=== PATIENT | female | born 1985 | race African-American/Black ===

== ENCOUNTER 2017-05-10 06:42 | Outpatient (CLI) | payer SELFPAY ==
[2017-05-10 07:04] VITALS: BP 114/70
[2017-05-10] MEDS ORDERED: VISTARIL PO NR (09:00)
== END 2017-05-10 08:40 | disposition home or self-care (01) ==
LOC: TRG 06:42
PROVIDERS: ATTEND Obstetrics & Gynecology
DX: O47.1 False labor at or after 37 completed weeks of gestation (principal); Z3A.39 39 weeks gestation of pregnancy
CPT/HCPCS: 59025; Q0177

== ENCOUNTER 2017-05-10 13:31 | Inpatient (IN) | payer OTHER ==
[2017-05-10] MEDS ORDERED: LACTATED RINGERS 1,000 ML ONE ×2 (15:23→16:52)
[2017-05-10] MEDS ORDERED: NARCAN 2 MG/2 ML IV PRN (16:09)
[2017-05-10] MEDS ORDERED: ePHEDrine SULFATE IV PRN ×2 (16:09→16:55)
--- NOTE | 2017-05-10 16:09 | Anesthesia Consultation ---
Anesthesia Consult and Med Hx Date of service: 05/10/17 - Airway Anesthetic Teeth Evaluation: Good ROM Head & Neck: Adequate Mental/Hyoid Distance: Adequate Mallampati Class: Class II Intubation Access Assessment: Probably Good - Pre-Operative Health Status Proposed Anesthetic Plan: Epidural, Spinal - Pulmonary Hx Asthma: No - Cardiovascular System Hx Hypertension: No - Central Nervous System Hx Seizures: No Hx Psychiatric Problems: No - Endocrine Hx Renal Disease: No Hx Hypothyroidism: No Hx Hyperthyroidism: No - Hematic Hx Anemia: No Hx Sickle Cell Disease: No - Other Systems Hx Alcohol Use: No
[2017-05-10] MEDS ORDERED: BRETHINE IVP PRN (16:55)
[2017-05-10] MEDS ORDERED: MINERAL OIL PO PRN (16:55)
[2017-05-10] MEDS ORDERED: BRETHINE SUB-Q PRN (16:55)
[2017-05-10] MEDS: LACTATED RINGERS 1,000 ML IV SCH ×2 (17:00→18:35)
[2017-05-10] MEDS ORDERED: PITOCin/NS 30 UNIT/500ML 30 UNITS/500 ML BAG IV SCH ×2 (17:00→18:00)
[2017-05-10] MEDS ORDERED: PITOCin/NS 20 UNIT/1000ML DRIP 20 UNITS/1,000 ML BAG IV SCH (17:00)
[2017-05-10] MEDS ORDERED: fentaNYL-BUPIV 2 MCG/ML-0.125% 200 MCG/100 ML BAG EPIDURAL SCH (17:00)
[2017-05-10] MEDS ORDERED: ZOFRAN IV PRN (17:01)
[2017-05-10] MEDS ORDERED: POLYCILLIN/NS 2 GM/100 ML 2 GM/100 ML BAG IV ONE (18:00)
--- NOTE | 2017-05-10 18:03 | History and Physical Report ---
History of Present Illness Date of examination: 05/10/17 Date of admission: 05/10/17 15:52 Chief complaint: Intense Labor Pains History of present illness: States she got care at [facility], states she had 3 visits. Clinic did not fax records. States her course was complicated by a UTI and Anemia. Past History Past Medical History: no pertinent history Past Surgical History: no surgical history Family/Genetic History: diabetes (mother), cancer (Lung CA: sister) Social history: - Obstetrical History Expected Date of Delivery: 05/13/17 Actual Gestation: 39 Week(s) 4 Day(s) : 1 Medications and Allergies Allergies Allergy/AdvReac Type Severity Reaction Status Date / Time No Known Allergies Allergy Verified 05/10/17 07:14 Active Meds: Active Medications Ephedrine Sulfate (Ephedrine Sulfate) 10 mg IV Q2M PRN PRN Reason: Hypotension Fentanyl/Bupivacaine/Sodium Chlor (Fentanyl-Bupiv 2 Mcg/Ml-0.125%) 200 mcg in 100 mls @ 12 mls/hr EPIDURAL TITR EMILY PRN Reason: Protocol Last Admin: 05/10/17 17:26 Dose: 12 mls/hr Lactated Ringer's (Lactated Ringers) 1,000 mls @ 125 mls/hr IV DIRECT EMILY Last Admin: 05/10/17 17:00 Dose: 125 mls/hr Oxytocin/Sodium Chloride (Pitocin/Ns 20 Unit/1000ml Drip) 20 units in 1,000 mls @ 125 mls/hr IV DIRECT EMILY Oxytocin/Sodium Chloride (Pitocin/Ns 30 Unit/500ml) 30 units in 500 mls @ 1 mls /hr IV TITR EMILY; 1 MILLIUNITS/MIN PRN Reason: Protocol Last Admin: 05/10/17 17:30 Dose: 1 milliunits/min, 1 mls/hr Oxytocin/Sodium Chloride (Pitocin/Ns 30 Unit/500ml) 30 units in 500 mls @ 4 mls /hr IV TITR EMILY PRN Reason: Protocol Ampicillin Sodium (Polycillin/Ns 2 Gm/100 Ml) 2 gm in 100 mls @ 100 mls/hr IV ONCE ONE Stop: 05/10/17 18:59 Last Admin: 05/10/17 17:10 Dose: 100 mls/hr Ampicillin Sodium (Polycillin/Ns 1 Gm/50 Ml) 1 gm in 50 mls @ 100 mls/hr IV Q4H MEILY PRN Reason: Protocol Mineral Oil (Mineral Oil) 30 ml PO QHS PRN PRN Reason: Constipation Naloxone HCl (Narcan 2 Mg/2 Ml) 0.2 mg IV Q5M PRN PRN Reason: Respiratory sedation Ondansetron HCl (Zofran) 4 mg IV Q8H PRN PRN Reason: Nausea And Vomiting Terbutaline Sulfate (Brethine) 0.25 mg SUB-Q ONCE PRN PRN Reason: Hyperstimulation/Hypertonicity Terbutaline Sulfate (Brethine) 0.25 mg IVP ONCE PRN PRN Reason: Hyperstimulation/Hypertonicity Review of Systems All systems: negative - Vital Signs Vital signs: Vital Signs Temp Pulse Resp BP Pulse Ox 98.4 F 72 20 113/72 100 05/10/17 14:04 05/10/17 14:04 05/10/17 14:04 05/10/17 14:04 05/10/17 14:04 Temp Pulse Resp BP Pulse Ox 98.4 F 83 20 106/63 100 05/10/17 14:04 05/10/17 18:00 05/10/17 14:04 05/10/17 17:57 05/10/17 18:00 - Physical Exam Breasts: Positive: normal Cardiovascular: Regular rate Lungs: Positive: Clear to auscultation, Normal air movement Abdomen: Positive: normal appearance, soft, normal bowel sounds Genitourinary (Female): Positive: normal external genitalia, normal perenium Vagina: Positive: normal moisture Anus/Rectum: Positive: normal perianal skin, heme negative - Obstetrical Cervical Dilatation: 6.5 (membranes were ruptured upon exam; no fluid observed; states her water broke around 7AM) Cervical Effacement Percentage: 90 station: -1 Uterine Contraction Frequency (min): 1-3 Uterine Contraction Pattern: Regular Uterine Contraction Intensity: Moderate Results All other labs normal. Assessment and Plan A: IUP @ 39 4/7 Weeks Category I Tracing SROM GBS Unknown Limited Care P: Admit to L&D per routine orders Epidural Anesthesia GBS Prophylaxis Pitocin Augmentation
[2017-05-10 18:34] LABS: Hematocrit 35.7 % (30.3-42.9); Hemoglobin 11.5 gm/dl (10.1-14.3); Mean Corpuscular HGB Conc 32 % (30-34); Mean Corpuscular Hemoglobin 26 pg (28-32); Mean Corpuscular Volume 81 fl (79-97); Platelet Count 304 K/mm3 (140-440); Red Blood Count 4.38 M/mm3 (3.65-5.03); Red Cell Distribution Width 13.7 % (13.2-15.2)
[2017-05-10] MEDS ORDERED: NACL 0.9% 1000 ML 1,000 ML ONE (21:23)
[2017-05-10] MEDS ORDERED: POLYCILLIN/NS 1 GM/50 ML 1 GM/50 ML BAG IV SCH (22:00)
[2017-05-10] MEDS ORDERED: DULCOLAX PR PRN (22:17)
[2017-05-10] MEDS ORDERED: NORCO 5/325 PO PRN (22:17)
[2017-05-10] MEDS ORDERED: TUCKS PAD TP PRN (22:17)
--- NOTE | 2017-05-10 22:26 | Procedure Note ---
OB Delivery Note - Delivery Date of Delivery: 05/10/17 (2150) Surgeon: DENISSE BENSON Estimated blood loss: 300cc - Vaginal Delivery presentation: vertex Delivery position: OA Intrapartum events: extend. tachycardia, mult.variable deceleratio Delivery induction: none Delivery augmentation: pitocin Delivery monitor: internal FHT, internal uterine Route of delivery: Delivery placenta: spontaneous Delivery cord: 3 umbilical vessels Delivery laceration: 2nd degree Delivery repair: vicryl Anesthesia: epidural Delivery comments: of a live 6'10 female over a second degree perineal laceration under epidural with Apgars of 8 and 9 at 2150 on 05/10/2017. Infant directly to maternal abd/chest, skin to skin contact. Spontaneous delivery of placenta complete and intact with Coe side presenting at 2154. Fundus is firm and midline located 4 below the U. Lochia is scant. Delayed cord clamping and cutting. Cord cut by the Father of the Baby. Perineal laceration repaired with 2-[address]-1. Cord blood collected. - Infant A at 1 minute: 8 at 5 minutes: 9 Gender: Female (6'10)
[2017-05-10] MEDS ORDERED: SODIUM CHLORIDE FLUSH SYRINGE 10 ML IV NR (23:00)
[2017-05-11] MEDS ORDERED: PITOCin/NS 20 UNIT/1000ML DRIP 20,000 MILLIUNITS/1,000 ML BAG IV ONE (00:21)
[2017-05-11] MEDS ORDERED: NACL 0.9% 1000 ML 1,000 ML VG SCH (04:00)
[2017-05-11] MEDS ORDERED: DERMOPLAST TP PRN (09:00)
--- NOTE | 2017-05-11 09:17 | Progress Note ---
Assessment and Plan - Patient Problems (1) (normal spontaneous vaginal delivery) Current Visit: Yes Status: Acute Plan to address problem: PPD 1 - stable Continue routine PP orders (2) Perineal discomfort in female Current Visit: Yes Status: Acute Plan to address problem: s/p 2nd degree perineal laceration repair Encourage ice packs x24 hrs, ambulation as tolerated Continue tucks prn Dermoplast ordered Subjective - Subjective Date of service: 05/11/17 Principal diagnosis: Normal Spontaneous Vaginal Delivery Patient reports: appetite normal, voiding normally, pain poorly controlled ( perineal pain), ambulating normally [place]: doing well, nursing well Objective - Vital Signs Latest vital signs: Vital Signs Temp Pulse Resp BP BP Pulse Ox 05/11/17 04:00 98.6 F 71 16 101/71 05/11/17 00:20 98.6 F 90 16 97/63 05/10/17 23:55 90 101/60 05/10/17 23:45 93 H 105/63 05/10/17 23:35 88 101/58 05/10/17 23:15 82/53 05/10/17 23:05 93 H 95/54 05/10/17 22:55 91 H 102/56 05/10/17 22:45 99 H 113/58 05/10/17 22:35 106 H 124/65 05/10/17 22:25 94 H 136/65 05/10/17 21:16 85 78 L 05/10/17 21:14 92 H 100 05/10/17 21:12 103 H 116/67 05/10/17 21:09 85 100 05/10/17 21:07 71 83 L 05/10/17 21:04 81 100 05/10/17 20:57 81 114/65 05/10/17 20:50 62 84 05/10/17 20:48 86 81 L 05/10/17 20:45 70 100 05/10/17 20:42 71 97/54 05/10/17 20:28 75 109/53 05/10/17 20:13 77 108/53 05/10/17 19:58 75 101/60 05/10/17 19:42 97 H 107/69 05/10/17 19:27 89 106/68 05/10/17 19:12 87 106/66 05/10/17 18:57 90 107/65 0218 18:50 90 100 0218 18:45 85 100 0218 18:42 85 107/63 0218 18:40 79 100 0218 18:35 81 100 0218 18:30 82 100 18 18:27 71 105/56 0218 18:25 75 100 18 18:20 70 100 0218 18:15 70 100 18 18:13 67 99/55 0218 18:10 90 100 18 18:05 86 100 18 18:00 97.2 F L 83 18 100 18 17:57 87 106/63 18 17:55 86 100 18 17:50 91 H 100 18 17:45 87 100 18 17:40 81 100 18 17:37 82 103/67 18 17:35 79 100 18 17:33 88 100/67 18 17:30 84 100 18 17:27 90 102/65 18 17:25 78 100 18 17:22 77 96/59 18 17:20 79 100 18 17:17 78 98/59 18 17:15 75 100 18 17:12 73 97/56 18 17:10 76 100 18 17:08 76 100/55 18 17:05 86 100 0218 17:03 80 93/50 0218 17:00 83 100 18 16:58 83 92/54 0218 16:55 85 100 0218 16:53 86 91/53 18 16:50 86 100 0218 16:48 86 94/51 02/18 16:45 88 100 18 16:42 87 94/57 0218 16:40 90 100 0218 16:37 86 103/64 0218 16:35 89 100 0218 16:30 98 H 100 02/26/18 16:25 102 H 100 05/10/17 16:20 92 H 100 05/10/17 16:00 97.0 F L 22 05/10/17 15:00 82 97 05/10/17 14:54 94 H 96 05/10/17 14:49 76 96 05/10/17 14:47 94 H 91 05/10/17 14:44 88 98 05/10/17 14:41 95 H 94 05/10/17 14:39 83 97 05/10/17 14:35 94 H 91 05/10/17 14:34 97 H 92 05/10/17 14:29 93 H 91 05/10/17 14:24 85 93 05/10/17 14:19 84 93 05/10/17 14:14 70 100 05/10/17 14:09 91 H 92 05/10/17 14:08 81 94 05/10/17 14:07 68 113/72 05/10/17 14:04 98.4 F 74 20 113/72 96 Intake and Output 05/10/17 05/11/17 05/11/17 23:59 07:59 15:59 Intake Total 209.984 550 Output Total 1400 Balance 209.984 -850 Intake: IV 209.984 250 Lactated Ringers 1,000 ml 197.917 @ 125 mls/hr IV DIRECT EMILY Rx#:[id number] Left Forearm 250 PITOCin/NS 30 UNIT/500ML 12.067 30 units In 500 ml @ 1 MILLIUNITS/MIN 1 mls/hr IV TITR EMILY Rx#:[id number] Intake, Free Water 300 Output: Urine 1400 Void 1400 Other: Total, Output Amount 600 # Voids Void 1 Weight 63.503 kg Estimated Blood Loss 300 - Exam Cardiovascular: Present: Regular rate, Normal S1, Normal S2, No murmurs Lungs: Present: Clear to auscultation, Normal air movement Abdomen: Present: normal appearance, soft Vulva: both: laceration/episiotomy Uterus: Present: normal, firm, fundal height below umbilicus Extremities: Present: normal Deep Tendon Reflex Grade: Normal +2 - Labs Labs: Abnormal lab results 05/10/17 Range/Units 16:59 WBC 15.1 H (4.5-11.0) K/mm3 MCH 26 L (28-32) pg
[2017-05-11 10:39] LABS: Hematocrit 22.3 % (30.3-42.9); Hemoglobin 7.5 gm/dl (10.1-14.3)
[2017-05-11] MEDS: MOTRIN PO SCH ×2 (12:53→23:40)
[2017-05-11] MEDS: LANSINOH TP PRN (12:54)
[2017-05-11] MEDS: FEOSOL PO SCH ×2 (14:15→23:40)
[2017-05-12] MEDS: MOTRIN PO SCH (07:57)
[2017-05-12] MEDS: FEOSOL PO SCH ×3 (08:56→20:19)
--- NOTE | 2017-05-12 10:06 | Progress Note ---
Assessment and Plan - Patient Problems (1) (normal spontaneous vaginal delivery) Current Visit: Yes Status: Acute Plan to address problem: PPD 2 - stable Continue routine PP orders Discharge to home later tonight, as requested Call [employer] to schedule follow-up and Meena Bassett to schedule 6-wks PP exam (2) Anemia in puerperium, baby delivered during current episode of care Current Visit: Yes Status: Acute Plan to address problem: Asymptomatic anemia Continue ferrous sulfate therapy Subjective - Subjective Date of service: 05/12/17 Principal diagnosis: Normal Spontaneous Vaginal Delivery Patient reports: appetite normal, voiding normally, pain well controlled, ambulating normally [place]: doing well, nursing well Objective - Vital Signs Latest vital signs: Vital Signs Temp Pulse Resp BP Pulse Ox 05/12/17 00:00 98.6 F 77 18 114/68 05/11/17 17:14 97.7 F 93 H 18 108/63 98 05/11/17 13:27 97.7 F 68 18 96/60 96 - Exam Cardiovascular: Present: Regular rate, Normal S1, Normal S2, No murmurs Lungs: Present: Clear to auscultation, Normal air movement Abdomen: Present: normal appearance, soft Vulva: both: laceration/episiotomy (well approximated and healing well) Uterus: Present: normal, firm, fundal height below umbilicus Extremities: Present: normal Deep Tendon Reflex Grade: Normal +2 - Labs Labs: Abnormal lab results 05/11/17 Range/Units 10:04 Hgb 7.5 L D (10.1-14.3) gm/dl Hct 22.3 L D (30.3-42.9) %
--- NOTE | 2017-05-12 10:11 | Discharge Summary ---
Providers - Providers Date of Admission: 05/10/17 15:52 Date of discharge: 05/12/17 Attending physician: FLORIDALMA HAAS MD Primary care physician: FLORIDALMA HAAS MD Hospitalization Reason for admission: active labor, IUP at term Delivery: Episiotomy: none Laceration: 2nd degree (perineal) Other procedures: none complications: none Discharge diagnosis: IUP at term delivered baby: female Hospital course: Uncomplicated Condition at discharge: Stable Disposition: DC-01 TO HOME OR SELFCARE - Discharge Diagnoses (1) (normal spontaneous vaginal delivery) Status: Acute (2) Anemia in puerperium, baby delivered during current episode of care Status: Acute Comment: Continue ferrous sulfate therapy at home Plan - Provider Discharge Summary Activity: routine, no sex for 6 weeks, no heavy lifting 4 weeks, no strenuous exercise Diet: routine Instructions: routine Additional instructions: [] Smoking cessation referral if applicable(refer to patient education folder for contact #) [] Refer to [facility] Booklet Call your doctor immediately for: * Fever > 100.5 * Heavy vaginal bleeding ( >1 pad per hour) * Severe persistent headache * Shortness of breath * Reddened, hot, painful area to leg or breast * Drainage or odor from incision. * Keep incision clean and dry at all times and follow doctor's instructions regarding bathing/showering - Follow up plan Follow up: FLORIDALMA HAAS MD [Primary Care Provider] - 6 Weeks (Call [employer] to schedule follow-up and [facility] for 6-wks PP exam)
[2017-05-12] MEDS: LANSINOH TP PRN (15:06)
[2017-05-12 19:03] VITALS: BP 80/51
== END 2017-05-12 22:40 | disposition home or self-care (01) | DRG 775 ==
LOC: TRG 13:31 → LD 15:52 → OB 23:59
PROVIDERS: ADMIT Obstetrics & Gynecology; ATTEND Obstetrics & Gynecology
PROC: 10E0XZZ Delivery of Products of Conception, External Approach (ICD-10-PCS; principal; 2017-05-10)
PROC: 0KQM0ZZ Repair Perineum Muscle, Open Approach (ICD-10-PCS; 2017-05-10)
PROC: 3E0R3BZ Introduction of Anesthetic Agent into Spinal Canal, Percutaneous Approach (ICD-10-PCS; 2017-05-10)
PROC: 00HU33Z Insertion of Infusion Device into Spinal Canal, Percutaneous Approach (ICD-10-PCS; 2017-05-10)
DX: O76 Abnormality in fetal heart rate and rhythm complicating labor and delivery (principal); O70.1 Second degree perineal laceration during delivery; Z37.0 Single live birth; D64.9 Anemia, unspecified; O99.03 Anemia complicating the puerperium; Z3A.39 39 weeks gestation of pregnancy; Z80.1 Family history of malignant neoplasm of trachea, bronchus and lung; Z83.3 Family history of diabetes mellitus
CPT/HCPCS: 36415; 85014; 85018; 85027; 86592; 86850; 86900; 86901; 99211; A6250; G0463; J0290; J2590; J7030; J7120

== ENCOUNTER 2020-06-13 06:56 | Outpatient (CLI) | payer MEDICAID ==
[2020-06-13 07:08] VITALS: BP 123/59
== END 2020-06-13 10:05 | disposition home or self-care (01) ==
LOC: TRG 06:56 → APU 06:58 → TRG 10:05
PROVIDERS: ATTEND Obstetrics & Gynecology
DX: Z34.93 Encounter for supervision of normal pregnancy, unspecified, third trimester (principal); Z3A.39 39 weeks gestation of pregnancy
CPT/HCPCS: 59025